=== PATIENT | male | born 1995 | race Native Hawaiian/Other Pacific Islander ===

== ENCOUNTER 2016-12-19 01:26 | Emergency (ER) | payer OTHER ==
[~2016-12-19] VITALS: Ht 185.4 cm; Wt 117.9 kg
== END 2016-12-19 02:55 | disposition home or self-care (01) ==
LOC: ED 01:26
DX: K08.89 Other specified disorders of teeth and supporting structures (principal)
CPT/HCPCS: 99283

== ENCOUNTER 2017-01-29 20:08 | Emergency (ER) | payer OTHER ==
[~2017-01-29] VITALS: Ht 185.4 cm; Wt 117.9 kg
[2017-01-29 21:14] LABS: PLATELET COUNT 169 K/uL (142-355)
[2017-01-29 21:34] VITALS: BP 142/72; TEMP 98.9
== END 2017-01-29 21:38 | disposition home or self-care (01) ==
LOC: ED 20:08
DX: L03.114 Cellulitis of left upper limb (principal); S60.512A Abrasion of left hand, initial encounter; Y04.2XXA Assault by strike against or bumped into by another person, initial encounter; Y92.89 Other specified places as the place of occurrence of the external cause
CPT/HCPCS: 36415; 85027; 90471; 90715; 96372; 99283; J0696

== ENCOUNTER 2017-01-30 18:29 | Inpatient (IN) | payer OTHER ==
[~2017-01-30] VITALS: Ht 185.4 cm; Wt 118.6 kg
[2017-01-30 18:49] VITALS: BP 123/79; TEMP 100.4
[2017-01-30 19:32] LABS: PLATELET COUNT 158 K/uL (142-355)
[2017-01-30 19:39] LABS: POTASSIUM 3.7 mmol/L (3.6-5.2); SODIUM 141 mmol/L (136-145)
[2017-01-30 23:14] VITALS: BP 138/6; TEMP 98.1; Ht 185.4 cm; Wt 118.6 kg
[2017-01-31] VITALS: BP 135/57; TEMP 97.8
[2017-01-31 04:00] VITALS: BP 120/70; TEMP 98.4
[2017-01-31 05:35] LABS: PLATELET COUNT 162 K/uL (142-355)
[2017-01-31 05:47] LABS: POTASSIUM 3.4 mmol/L (3.6-5.2); SODIUM 140 mmol/L (136-145)
[2017-01-31 08:00] VITALS: BP 119/68; TEMP 98.9
[2017-01-31 12:00] VITALS: BP 130/78; TEMP 98.4
[2017-01-31 16:00] VITALS: BP 132/83; TEMP 98
[2017-01-31 20:00] VITALS: BP 117/64; TEMP 99
[2017-02-01 00:19] VITALS: BP 122/81; TEMP 98.4
[2017-02-01 04:00] VITALS: BP 122/58; TEMP 98
[2017-02-01 06:13] LABS: PLATELET COUNT 182 K/uL (142-355)
[2017-02-01 06:26] LABS: POTASSIUM 3.8 mmol/L (3.6-5.2); SODIUM 140 mmol/L (136-145)
[2017-02-01 08:00] VITALS: BP 135/72; TEMP 98.6
[2017-02-01 12:00] VITALS: BP 131/85; TEMP 98.1
[2017-02-01 16:00] VITALS: BP 112/58; TEMP 98.6
[2017-02-01 20:00] VITALS: BP 132/84; TEMP 99.4
[2017-02-02] VITALS: BP 118/58; TEMP 97.8
[2017-02-02 04:00] VITALS: BP 107/41; TEMP 97.5
[2017-02-02 04:50] LABS: PLATELET COUNT 207 K/uL (142-355)
[2017-02-02 05:04] LABS: POTASSIUM 3.9 mmol/L (3.6-5.2); SODIUM 140 mmol/L (136-145)
[2017-02-02 08:00] VITALS: BP 127/64; TEMP 97.8
[2017-02-02 12:00] VITALS: BP 111/62; TEMP 99.3
[2017-02-02 16:00] VITALS: BP 129/70; TEMP 97.6
[2017-02-02 20:00] VITALS: BP 125/71; TEMP 98.9
[2017-02-03] VITALS: BP 137/62; TEMP 97.6
[2017-02-03 04:00] VITALS: BP 114/57; TEMP 97.5
[2017-02-03 05:44] LABS: PLATELET COUNT 217 K/uL (142-355)
[2017-02-03 05:55] LABS: POTASSIUM 3.7 mmol/L (3.6-5.2); SODIUM 144 mmol/L (136-145)
[2017-02-03 08:00] VITALS: BP 106/64; TEMP 97.8
[2017-02-03 12:00] VITALS: BP 117/71; TEMP 98.2
== END 2017-02-03 14:09 | disposition home or self-care (01) | DRG 603 ==
LOC: ED 18:29 → MED/SURG 20:10
PROVIDERS: Emergency Medicine; ADMIT Emergency Medicine
DX: L03.114 Cellulitis of left upper limb (principal)
CPT/HCPCS: 36415; 36591; 80048; 80053; 80202; 83735; 85027; 85651; 87040; 87070; 96365; 96367; 99284; J1885; J2543; J3370